=== PATIENT | male | born 1970 | race Caucasian/White ===

== ENCOUNTER 2018-11-24 11:29 | Emergency (ER) | payer SELFPAY ==
[~2018-11-24] VITALS: Ht 172.7 cm; Wt 77.3 kg
[2018-11-24] MEDS ORDERED: SODIUM CHLORIDE FLUSH 10ML SYR IVF ONE (12:00)
[2018-11-24 12:17] LABS: BASOPHILS # (AUTO) 0.03 x10^3/uL (0-0.1); BASOPHILS % (AUTO) 1 % (0-1); EOSINOPHILS # (AUTO) 0.01 x10^3/uL (0-0.4); EOSINOPHILS % (AUTO) 0 % (1-7); LYMPHOCYTES # (AUTO) 1.07 x10^3/uL (1-3.4); LYMPHOCYTES % (AUTO) 33 % (22-44); MD NO; MEAN CORPUSCULAR HEMOGLOBIN 35.3 pg (27.5-34.5); MEAN CORPUSCULAR HGB CONC 34.9 g/dL (33.2-36.2); MEAN CORPUSCULAR VOLUME 101.1 fL (81-97); MEAN PLATELET VOLUME 7.1 fL (7.4-10.4); MONOCYTES # (AUTO) 0.28 x10^3/uL (0.2-0.8); MONOCYTES % (AUTO) 9 % (2-9); NEUTROPHILS # (AUTO) 1.83 x10^3/uL (1.8-6.8); NEUTROPHILS % (AUTO) 57 % (42-75); PLATELET COUNT 138 x10^3/uL (130-400); RED BLOOD COUNT 4.21 x10^6/uL (4.38-5.82)
[2018-11-24] MEDS ORDERED: KETOROLAC 30 MG/1 ML ONE (12:35)
[2018-11-24] MEDS ORDERED: LORazepam 2 MG/ML, 1ML ONE (12:36)
[2018-11-24 12:37] LABS: ALBUMIN 4.2 g/dL (3.4-5.0); ANION GAP 12 mmol/L (5-15); CALCIUM 8.7 mg/dL (8.5-10.1); CHLORIDE 108 mmol/L (98-107)
[2018-11-24 12:39] VITALS: BP 136/86
[2018-11-24 12:43] LABS: ALANINE AMINOTRANSFERASE 54 U/L (12-78); ALKALINE PHOSPHATASE 115 U/L (45-117); BILIRUBIN,TOTAL 0.9 mg/dL (0.2-1.0); CREATININE 0.76 mg/dL (0.7-1.3); TOTAL PROTEIN 7.5 g/dL (6.4-8.2); TROPONIN I < 0.015 ng/mL (0.000-0.045)
[2018-11-24] MEDS ORDERED: LORazepam 2 MG/ML, 1ML IVPush ONE (13:00)
[2018-11-24] MEDS ORDERED: KETOROLAC 30 MG/1 ML IVPush ONE (13:00)
--- NOTE | 2018-11-24 13:07 | NUR ---
ENTERED ROOM. PT STATED HE FEELS A LOT BETTER NOW. PT FOUND WITH EMPTY ATIVAN VIAL USED TO MEDICATE IN HIS HANDS. VIAL WAS TAKEN FROM PT AND DISPOSED OF IN SHARPS CONTAINER.
== END 2018-11-24 14:04 | disposition home or self-care (01) ==
LOC: ED 13:45
DX: F43.0 Acute stress reaction (principal); R07.89 Other chest pain; F10.239 Alcohol dependence with withdrawal, unspecified
CPT/HCPCS: 36415; 71045; 80053; 83880; 84484; 85025; 93005; 96374; 96375; 99284; J1885; J2060

== ENCOUNTER 2019-01-09 22:56 | Emergency (ER) | payer SELFPAY ==
[~2019-01-09] VITALS: Ht 170.2 cm; Wt 80.5 kg
[2019-01-09 23:00] VITALS: BP 143/85
--- NOTE | 2019-01-09 23:06 | NUR ---
ONSET @ 0100 NOTICED LOSS OF HEARING L EAR. NOW HEARING COMPLETELY GONE. ONSET OF DIZZINESS @ 0800. VOMITING X 1. EKG DONE IN ER. per triage note
[2019-01-09] MEDS ORDERED: MECLIZINE CHEWABLE 25 MG TAB PO ONE (23:30)
[2019-01-09] MEDS ORDERED: MECLIZINE CHEWABLE 25 MG TAB ONE (23:35)
[2019-01-09 23:45] LABS: BASOPHILS # (AUTO) 0.03 x10^3/uL (0-0.1); BASOPHILS % (AUTO) 1 % (0-1); EOSINOPHILS # (AUTO) 0.03 x10^3/uL (0-0.4); EOSINOPHILS % (AUTO) 1 % (1-7); LYMPHOCYTES # (AUTO) 1.44 x10^3/uL (1-3.4); LYMPHOCYTES % (AUTO) 34 % (22-44); MD NO; MEAN CORPUSCULAR HGB CONC 34.3 g/dL (33.2-36.2); MEAN CORPUSCULAR VOLUME 105.1 fL (81-97); MEAN PLATELET VOLUME 6.9 fL (7.4-10.4); MONOCYTES # (AUTO) 0.52 x10^3/uL (0.2-0.8); MONOCYTES % (AUTO) 13 % (2-9); NEUTROPHILS # (AUTO) 2.18 x10^3/uL (1.8-6.8); NEUTROPHILS % (AUTO) 52 % (42-75); PLATELET COUNT 122 x10^3/uL (130-400); RED BLOOD COUNT 4.12 x10^6/uL (4.38-5.82); RED CELL DISTRIBUTION WIDTH 12.9 % (9.4-14.8)
[2019-01-09 23:56] LABS: ALBUMIN 3.8 g/dL (3.4-5.0); ANION GAP 9 mmol/L (5-15); CALCIUM 8.5 mg/dL (8.5-10.1); CHLORIDE 107 mmol/L (98-107); CREATININE 0.67 mg/dL (0.7-1.3)
== END 2019-01-10 00:36 | disposition home or self-care (01) ==
LOC: ED 23:32
DX: H81.02 Meniere's disease, left ear (principal); H61.22 Impacted cerumen, left ear
CPT/HCPCS: 36415; 69210; 80048; 82040; 85025; 93005; 99284

== ENCOUNTER 2019-01-20 14:01 | Emergency (ER) | payer SELFPAY ==
[~2019-01-20] VITALS: Ht 170.2 cm; Wt 80.7 kg
[2019-01-20 14:39] LABS: BASOPHILS # (AUTO) 0.03 x10^3/uL (0-0.1); BASOPHILS % (AUTO) 1 % (0-1); EOSINOPHILS # (AUTO) 0.02 x10^3/uL (0-0.4); EOSINOPHILS % (AUTO) 0 % (1-7); LYMPHOCYTES # (AUTO) 1.64 x10^3/uL (1-3.4); LYMPHOCYTES % (AUTO) 32 % (22-44); MD NO; MEAN CORPUSCULAR HEMOGLOBIN 35.3 pg (27.5-34.5); MEAN CORPUSCULAR HGB CONC 33.8 g/dL (33.2-36.2); MEAN CORPUSCULAR VOLUME 104.5 fL (81-97); MEAN PLATELET VOLUME 6.7 fL (7.4-10.4); MONOCYTES # (AUTO) 0.39 x10^3/uL (0.2-0.8); MONOCYTES % (AUTO) 7 % (2-9); NEUTROPHILS # (AUTO) 3.15 x10^3/uL (1.8-6.8); NEUTROPHILS % (AUTO) 60 % (42-75); PLATELET COUNT 197 x10^3/uL (130-400); RED BLOOD COUNT 4.47 x10^6/uL (4.38-5.82); RED CELL DISTRIBUTION WIDTH 12.5 % (9.4-14.8)
[2019-01-20 14:50] LABS: ALANINE AMINOTRANSFERASE 65 U/L (12-78); ALBUMIN 3.7 g/dL (3.4-5.0); ANION GAP 10 mmol/L (5-15); CALCIUM 8.1 mg/dL (8.5-10.1); CHLORIDE 110 mmol/L (98-107)
[2019-01-20 14:54] LABS: ALKALINE PHOSPHATASE 130 U/L (45-117); BILIRUBIN,TOTAL 0.3 mg/dL (0.2-1.0); TOTAL PROTEIN 7.3 g/dL (6.4-8.2); TROPONIN I < 0.015 ng/mL (0.000-0.045)
--- NOTE | 2019-01-20 15:18 | NUR ---
DESIGN PAINTER: PT TO ROOM FROM [facility] AYALA
[2019-01-20] MEDS ORDERED: DIAZEPAM 5 MG TABLET ONE (15:58)
[2019-01-20] MEDS ORDERED: DIAZEPAM 5 MG TABLET PO ONE (16:00)
--- NOTE | 2019-01-20 16:03 | NUR ---
VON RN: PT C/O DIZZINESS FOR ONE WEEK AND WAS SEEN HERE AT THAT TIME, PRESCRIBED MECLIZINE WITH NO RELIEF. PT DENIES N/V OR [place]. PT REPORTS LAST DRINK WAS 1.5 WEEKS AGO. VSS. REPORT TO LUIGI Taylor RN
--- NOTE | 2019-01-20 16:42 | NUR ---
PATIENT ARRIVES TO ER FOR DIZZINESS AND SPINNING. ON MONITOR, RAILS UP, PATIENT BACK FROM RADIOLOGY. ON MONITOR, VSS.
--- NOTE | 2019-01-20 17:26 | NUR ---
task rn: pt up with steady gait to rr with standby assist from this rn. pt denies dizziness, nausea or pain. vss before and after road test. edmd updated. edmd to bs to update on poc.
[2019-01-20 18:30] VITALS: BP 127/85
--- NOTE | 2019-01-20 18:32 | NUR ---
patient dicharge teaching reviewed regarding follow up care. patient shows understanding. patient has friend picking him up. feels imprved. rx reviewed.
== END 2019-01-20 18:34 | disposition home or self-care (01) ==
LOC: ED 16:53
DX: R42 Dizziness and giddiness (principal)
CPT/HCPCS: 36415; 70450; 71045; 80053; 84484; 85025; 93005; 99284

== ENCOUNTER 2019-12-23 08:40 | Emergency (ER) | payer BC ==
[~2019-12-23] VITALS: Ht 172.7 cm; Wt 80.0 kg
--- NOTE | 2019-12-23 08:50 | NUR ---
PT AMBULATED TO RESTROOM WITH A STEADY GAIT.
--- NOTE | 2019-12-23 09:09 | NUR ---
report from [facility]. patient arrives with LBP and etoh intoxication and states had 32 ounces of beer this morning. in bed, rails up.
--- NOTE | 2019-12-23 09:10 | NUR ---
REPORT TO JOSETTE MEYERS.
--- NOTE | 2019-12-23 09:17 | NUR ---
PATIENT IN BED, ON MONITOR, VSS. HE STATES HE HAS LOWER BACK PAIN THAT BEGAN FIVE DAYS AGO. PAIN IS A 8 OF 10. HE IS CALM.
[2019-12-23] MEDS ORDERED: HYDROcodone/APAP 5/325 TABLET PO ONE (09:30)
[2019-12-23] MEDS ORDERED: CYCLOBENZAPRINE 10 MG TABLET PO ONE (09:30)
[2019-12-23] MEDS ORDERED: ONDANSETRON ODT 4 MG PO ONE (09:30)
[2019-12-23] MEDS ORDERED: KETOROLAC 30 MG/1 ML IM ONE (09:30)
--- NOTE | 2019-12-23 09:44 | NUR ---
PATIENT TAKEN WITH TECH TO XRAY. PATIENT BREATHYLZER DONE, AND 0.37 SO PA CANCELLING NORCO AND FLEXERIL FOR PATIENT SAFETY.
[2019-12-23] MEDS ORDERED: ONDANSETRON ODT 4 MG ONE (09:45)
[2019-12-23] MEDS ORDERED: KETOROLAC 30 MG/1 ML ONE (09:45)
--- NOTE | 2019-12-23 09:53 | NUR ---
BACK FROM XRAY. OM MONITOR
--- NOTE | 2019-12-23 10:28 | NUR ---
REPORT RECEIVED FROM JOSETTE MEYERS. ASSUMED CARE OF PT.
--- NOTE | 2019-12-23 10:46 | NUR ---
PAM ELIAS AT BEDSIDE FOR RECHECK/EXPLANATION OF RESUTLS. PT CURRENTLY RESTING ON GURNEY. NAD NOTED. PT AO X 4. SKIN WARM AND DRY. RESP EVEN AND UNLABORED. PT ON CONT BP AND O2 MONITORS. CALL LIGHT WITHIN REACH.
[2019-12-23 11:04] VITALS: BP 112/76
== END 2019-12-23 11:06 | disposition home or self-care (01) ==
LOC: ED 10:14
DX: S39.012A Strain of muscle, fascia and tendon of lower back, initial encounter (principal); M54.41 Lumbago with sciatica, right side; F10.220 Alcohol dependence with intoxication, uncomplicated; X58.XXXA Exposure to other specified factors, initial encounter; Y93.89 Activity, other specified; Y92.89 Other specified places as the place of occurrence of the external cause; Y99.8 Other external cause status; Y90.0 Blood alcohol level of less than 20 mg/100 ml
CPT/HCPCS: 72110; 96372; 99283; J1885; Q0162